=== PATIENT | female | born 1990 | race Hispanic/Latino ===

== ENCOUNTER 2022-04-29 17:55 | Emergency (ER) | payer OTHER ==
[~2022-04-29] VITALS: Ht 167.6 cm; Wt 127.0 kg
[2022-04-29] MEDS ORDERED: PROAIR DIGIHAL90 MCG INH (18:40)
[2022-04-29] MEDS ORDERED: ADVAIR 250-501 EACH INH (18:40)
[2022-04-29 18:44] VITALS: BP 117/83
== END 2022-04-29 18:47 | disposition home or self-care (01) ==
LOC: ER 18:10
DX: Z76.0 Encounter for issue of repeat prescription (principal); J45.909 Unspecified asthma, uncomplicated
CPT/HCPCS: 99283